=== PATIENT | female | born 1995 ===

== ENCOUNTER 2019-03-08 21:39 | Inpatient (IN) | payer OTHER ==
[~2019-03-08] VITALS: Ht 147.3 cm; Wt 70.8 kg
[~2019-03-08 21:39] MED LIST: PRENATAL CAPSU1 EACH PO; ZOFRAN4 MG PO
== END 2019-03-11 14:20 | DRG 798 ==
LOC: LDR 21:39 → OB/GYN 21:39
PROVIDERS: ADMIT Obstetrics & Gynecology
PROC: 4A0HXFZ Measurement of Products of Conception, Cardiac Rhythm, External Approach (ICD-10-PCS; 2019-03-08)
PROC: 10E0XZZ Delivery of Products of Conception, External Approach (ICD-10-PCS; principal; 2019-03-09)
PROC: 0UL70ZZ Occlusion of Bilateral Fallopian Tubes, Open Approach (ICD-10-PCS; 2019-03-10)
DX: O60.13X0 Preterm labor second trimester with preterm delivery third trimester, not applicable or unspecified (principal); Z37.0 Single live birth; Z3A.36 36 weeks gestation of pregnancy; Z30.2 Encounter for sterilization